=== PATIENT | female | born 1945 | race Caucasian/White ===

== ENCOUNTER 2018-10-16 06:15 | Inpatient (IN) | payer MEDICARE, BC ==
[2018-10-16] MEDS: Lactated Ringers 1,000 ML IV SCH ×2 (06:58→16:32)
[2018-10-16] MEDS ORDERED: Scopolamine 1.5 MG Transdermal Patch TRDERM PRN (07:01)
[2018-10-16] MEDS ORDERED: Clindamycin Phosphate in D5W 900 MG in Premix Bag 1 BAG IV SCH ×2 (07:15)
[2018-10-16] MEDS ORDERED: Lidocaine 2% 5 ML SDV ONE (07:18)
[2018-10-16] MEDS ORDERED: Propofol 200 MG/20 ML SDV ONE (07:18)
[2018-10-16] MEDS ORDERED: Midazolam 1 MG/ML 2 ML SDV ONE (07:19)
[2018-10-16] MEDS ORDERED: fentaNYL 100 MCG/2 ML SDV ONE (07:19)
--- NOTE | 2018-10-16 07:20 | PCM.PREANE ---
Preanesthetic Assessment - Anesthesia/Transfusion/Family Hx Anesthesia History: Prior Anesthesia Reaction Type of Anesthesia Reaction: Excessive Nausea/Vomiting Other Type of Anesthesia Reaction Comment: would like the scope patch placed before surgery Family History of Anesthesia Reaction: No Transfusion History: No Prior Transfusion(s) Intubation History: Unknown - Review of Systems General: No Symptoms Pulmonary: No Symptoms Cardiovascular: No Symptoms Gastrointestinal: No Symptoms Neurological: No Symptoms Other: Reports: None - Physical Assessment O2 Sat by Pulse Oximetry: 95 Respiratory Rate: 16 Vital Signs: Last Vital Signs Temp 36.3 C 10/16/18 06:45 Pulse 68 10/16/18 06:45 Resp 16 10/16/18 06:45 BP 137/76 10/16/18 06:45 Pulse Ox 95 10/16/18 06:45 Height: 5 ft 3 in Weight: 71.668 kg ASA Class: 2 Mental Status: Alert & Oriented x3 Airway Class: Mallampati = 2 Dentition: Reports: Normal Dentition, Albia(s) (few on the back side) Thyro-Mental Finger Breadths: 3 Mouth Opening Finger Breadths: 2 ROM/Head Extension: Limited/Partial Lungs: Clear to Auscultation, Normal Respiratory Effort Cardiovascular: Regular Rate, Regular Rhythm - Allergies Allergies/Adverse Reactions: Allergies Allergy/AdvReac Type Severity Reaction Status Date / Time ezetimibe [From Vytorin] Allergy Body Aches Verified 10/11/18 13:32 Penicillins Allergy Hives Verified 10/11/18 13:21 simvastatin [From Vytorin] Allergy Body Aches Verified 10/11/18 13:32 dust Allergy sinus Uncoded 10/11/18 13:32 problems & H\A molds Allergy sinus Uncoded 10/11/18 13:32 problems & H\A - Blood Blood Available: No - Anesthesia Plan Pre-Op Medication Ordered: None - Acknowledgements Anesthesia Type Planned: Spinal (general anesthesia back up plan) Pt an Appropriate Candidate for the Planned Anesthesia: Yes Alternatives and Risks of Anesthesia Discussed w Pt/Guardian: Yes Pt/Guardian Understands and Agrees with Anesthesia Plan: Yes PreAnesthesia Questionnaire HEENT History: Reports: Allergic Rhinitis, Other (See Below) Other HEENT History: wears glasses Cardiovascular History: Reports: High Cholesterol, Hypertension Respiratory History: Reports: None Gastrointestinal History: Reports: None Genitourinary History: Reports: Other (See Below) Other Genitourinary History: UTI's years ago 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: Musculoskeletal History: Reports: Osteoarthritis Neurological History: Reports: Other (See Below) Other Neuro History: sinus headaches in the past Psychiatric History: Reports: Anxiety, Depression Endocrine/Metabolic History: Reports: None Hematologic History: Reports: Blood Transfusion(s) Other Hematologic History: transfusion after hysterectomy Immunologic History: Reports: None Oncologic (Cancer) History: Reports: None Dermatologic History: Reports: None - Past Surgical History Head Surgeries/Procedures: Reports: None HEENT Surgical History: Reports: None Cardiovascular Surgical History: Reports: None Respiratory Surgical History: Reports: None GI Surgical History: Reports: None Female Surgical History: Reports: Breast Biopsy, Hysterectomy, Tubal Ligation Endocrine Surgical History: Reports: None Neurological Surgical History: Reports: None Musculoskeletal Surgical History: Reports: None Oncologic Surgical History: Reports: Biopsy of Breast Dermatological Surgical History: Reports: None - SUBSTANCE USE Smoking Status *Q: Never Smoker Recreational Drug Use History: No - HOME MEDS Home Medications: Home Meds Citalopram [Celexa] 20 mg PO DAILY 03/22/15 [History] Losartan [Cozaar] 50 mg PO DAILY 03/22/15 [History] Cholestyramine/Aspartame [Cholestyramine Light Powder] 4 gm PO ASDIRECTED [History] Flaxseed Oil 1,000 mg PO DAILY 10/11/18 [History] Lutein 20 mg PO DAILY 10/11/18 [History] Multivitamin [Multivitamins] 1 tab PO DAILY 10/11/18 [History] Nystatin [Nystatin Crm] 1 applic TOP ASDIRECTED PRN 10/11/18 [History] Porcupine-3/DHA & EPA/Ala/Vit D3 [Porcupine-3 Gummies] 1 tab.chew CHEW DAILY 10/11/18 [ History] - CURRENT (IN HOUSE) MEDS Current Meds: Current Medications Lactated Ringer's (Ringers, Lactated) 1,000 mls @ 100 mls/hr IV ASDIRECTED [facility] Last Admin: 10/16/18 06:58 Dose: 100 mls/hr Clindamycin Phosphate 900 mg/ (Premix) 50 mls @ 100 mls/hr IV ONETIME [facility] Scopolamine (Transderm-Scop) 1.5 mg TRDERM Q72H PRN PRN Reason: Nausea Last Admin: 10/16/18 07:17 Dose: 1.5 mg Discontinued Medications Tranexamic Acid (Cyklokapron) 2,000 mg IV ONETIME ONE Stop: 10/16/18 07:15
[2018-10-16] MEDS ORDERED: EPINEPHrine 1 MG/ML SDV ONE (08:35)
[2018-10-16] MEDS ORDERED: Sodium Chloride 0.9% 20 ML ONE (08:35)
[2018-10-16] MEDS ORDERED: ePHEDrine 50 MG/ML SDV ONE (08:35)
[2018-10-16] MEDS ORDERED: Phenylephrine/Normal Saline 100 MCG/ML 10 ML Syringe ONE (08:45)
[2018-10-16] MEDS ORDERED: fentaNYL 100 MCG/2 ML SDV IVPUSH PRN (08:52)
[2018-10-16] MEDS ORDERED: Naloxone 0.4 MG/ML Syringe IVPUSH PRN (08:52)
[2018-10-16] MEDS ORDERED: 50% Dextrose in Water 50 ML Syringe IVPUSH PRN (08:52)
[2018-10-16] MEDS ORDERED: EPINEPHrine 1:10,000 1 MG/10 ML Syringe IVPUSH PRN (08:52)
[2018-10-16] MEDS ORDERED: Albuterol 0.083% 2.5 MG/3 ML Neb Soln NEB PRN (08:52)
[2018-10-16] MEDS ORDERED: Atropine 0.1 MG/ML 10 ML Syringe IVPUSH PRN ×2 (08:52)
[2018-10-16] MEDS ORDERED: Docusate Sodium 100 MG Cap PO PRN (09:54)
[2018-10-16] MEDS ORDERED: Acetaminophen/HYDROcodone 325-5 MG Tab ONE (09:54)
[2018-10-16] MEDS ORDERED: Morphine 10 MG/ML Syringe IVPUSH PRN (09:54)
--- NOTE | 2018-10-16 09:59 | PCM.OPNOTE ---
- General Post-Op/Procedure Note Date of Surgery/Procedure: 10/16/18 Operative Procedure(s): right anterior total hip arthroplasty Findings: osteoarthritis Pre Op Diagnosis: right hip osteoarthritis Post-Op Diagnosis: same Anesthesia Technique: Moderate Sedation, Spinal Primary Surgeon: Florentino Milligan Mai Pathology: femoral head EBL in mLs: 300 Complications: none Condition: Good
[2018-10-16] MEDS ORDERED: Cholestyramine/Aspartame Powder 239.4 GM Jar PO SCH (10:30)
[2018-10-16] MEDS: HYDROmorphone 2 MG/ML Syringe IVPUSH PRN ×2 (12:46→15:03)
[2018-10-16] MEDS: Clindamycin Phosphate in D5W 900 MG in Premix Bag 1 BAG IV SCH ×4 (13:19→21:59)
[2018-10-16] MEDS: Ondansetron 4 MG/2 ML SDV IVPUSH PRN ×2 (16:30→22:38)
--- NOTE | 2018-10-16 17:20 | OR ---
SURGEON: Florentino Serra MD DATE OF PROCEDURE: 10/16/2018 PREOPERATIVE DIAGNOSIS: Right hip osteoarthritis. POSTOPERATIVE DIAGNOSIS: Right hip osteoarthritis. OPERATION PERFORMED: Right anterior total hip arthroplasty. ANESTHESIA: Spinal sedation. COMPLICATION: None. ESTIMATED BLOOD LOSS: 300 mL. SPECIMENS: Femoral head. IMPLANTS: Dante Continuum trabecular metal shell, cluster holes, 60 mm outer diameter; one 6.5 x 30 mm length bone screw, Vivacit-E neutral liner, 32 mm inner diameter; M/L Taper press-fit stem, extended offset, reduced neck length, size 10; Biolox ceramic femoral head 32 mm diameter,-3.5 neck length. INDICATIONS: The patient is a 73-year-old female with severe arthritis of the hip. She wished to undergo replacement. She understands the risks, benefits, and complications of the procedure to include, but not limited to infection, neurovascular injury, continued pain, DVT, PE, stroke, IA, , leg-length discrepancy, fracture, dislocation and deep infection, and she wished to proceed. DESCRIPTION OF PROCEDURE: The patient was seen in the preoperative area. The operative site was marked with the patient. She was transferred to the operating room, where spinal anesthetic was given. A Garcia catheter was placed. She was placed supine on the Maquet table and sedation was given. Legs were placed in the leg bars with narrow perineal post. Right hip was prepped and draped in the usual sterile fashion using alcohol followed by ChloraPrep. A formal time-out was taken to identify correct patient, procedure, and extremity. She received preoperative antibiotics with clindamycin and 2 g of TXA. There was Ioban covering. An 8 cm incision starting laterally at the ASIS and going obliquely down the femur was made. Dissection was carried down through subcutaneous tissues. Hemostasis was obtained. The fascia overlying the TFL lateral to lateral femoral cutaneous nerve was opened, and the interval between TFL and sartorius was opened. The vastus lateralis fascia of the anterior vessels was coagulated. The indirect head of the rectus was released, and deep David retractor was placed. Capsule was held and tagged with two sutures. Deep retractors were placed. There was severe synovitis. The neck was cut from saddle region 1 cm above the lesser trochanter, and the head was removed. There was noted be moderate arthritis with subchondral cystic changes. Labral remnants were removed. The inferior capsule was released preserving the iliopsoas tendon, and the pulvinar was removed. Head measured approximately 45 mm. It was sequentially reamed from 43 up to 49 mm going slightly superomedial. This was a great fit and fill. There was good bleeding cancellous bone. The wound was irrigated. After planing the bed to make sure it was level, under fluoroscopic control, a Continuum trabecular metal shell cluster holes were placed in 40 degrees of abduction and 10 degrees of anteversion. This was an excellent press-fit. One straight superior bone screw was placed. There was no uncovering of the cup anteriorly. The neutral liner was impacted. The femoral lift was placed. The leg was externally rotated, abducted, and extended. Superior capsule, obturator, internus, and piriformis were released. The central canal finder was utilized. It was sequentially broached from size 4 to size 10. It was trial reduced for standard offset. Printed overlay technique with fluoroscopy showed offset to be equal, but leg length to be slightly long, approximately 3 to 4 mm. The hip was then dislocated. Therefore, a size-10 extended offset reduced neck length was impacted. However, this sat about 2 to 3 mm prouder than the broach. It was trial reduced with a -3.5 neck length, which showed offset to be slightly increased and the leg lengths to be slightly increased by a couple of millimeter, and this was deemed acceptable. There was no Shuck, and the hip was stable through range of motion. Hip was then dislocated. The final head was impacted, a 32-mm diameter -3.5 neck length. The hip was then relocated. Wound was thoroughly irrigated. Two tag sutures were tied together. The fascia was closed with #1 Vicryl, fat layer with #1 Vicryl, subcutaneous tissues with 2-0 STRATAFIX, and skin with running 4-0 Monocryl. Dermabond tape and Aquacel dressing were placed. The patient was transferred to the recovery room in a stable condition. Sponge and needle counts were correct at the end of the case. There were no complications. She will weightbear as tolerated and aspirin for DVT prophylaxis. MIKAELA BURTON /[id number]
[2018-10-16] MEDS: Acetaminophen/HYDROcodone 325-7.5 MG Tab PO PRN (19:27)
[2018-10-16] MEDS: Aspirin 325 MG Tab.EC PO SCH (21:57)
[2018-10-17] MEDS: Lactated Ringers 1,000 ML IV SCH (02:40)
[2018-10-17] MEDS: Acetaminophen/HYDROcodone 325-7.5 MG Tab PO PRN ×2 (04:03→08:41)
[2018-10-17] MEDS: Clindamycin Phosphate in D5W 900 MG in Premix Bag 1 BAG IV SCH ×2 (05:31)
[2018-10-17] MEDS ORDERED: Sodium Chloride 0.9% 2.5 ML Syringe FLUSH PRN (06:59)
[2018-10-17] MEDS ORDERED: Sodium Chloride 0.9% 10 ML Syringe FLUSH PRN (06:59)
--- NOTE | 2018-10-17 07:01 | PCM.SN ---
- Free Text/Narrative Note: Subjective: Patient is doing well other than lots of nausea. She has not gotten up due to nausea. She has no chest pain or shortness of breath.. Her pain is well controlled. O: Afebrile, vital signs stable Right hip reveals a clean/dry/intact. There is no swelling proximally or distally. She has normal sensation and motor distally. There is a palpable pulse. Assessment/plan: Postoperative day #1 right anterior total hip arthroplasty - Full weightbearing with physical therapy and walker - Leave dressing on. No extreme external rotation or extension - Ecotrin for DVT prophylaxis - DC Garcia and IV fluids - Possible home today depending on how she does..
--- NOTE | 2018-10-17 08:13 | PCM48HPAN ---
Post Anesthesia Note - EVALUATION WITHIN 48HRS OF ANESTHETIC Vital Signs in Normal Range: Yes Patient Participated in Evaluation: Yes Respiratory Function Stable: Yes Airway Patent: Yes Cardiovascular Function Stable: Yes Hydration Status Stable: Yes Pain Control Satisfactory: Yes Nausea and Vomiting Control Satisfactory: Yes Mental Status Recovered: Yes Resp Rate: 18 - COMMENTS/OBSERVATIONS Free Text/Narrative:: Up in chair and states that nausea is better than yesterday and able to eat now. Also states that pain is doing better and that movement helps her.
[2018-10-17] MEDS ORDERED: Losartan 50 MG Tab PO SCH (09:00)
[2018-10-17] MEDS ORDERED: Citalopram 20 MG Tab PO SCH (09:00)
[2018-10-17] MEDS: Aspirin 325 MG Tab.EC PO SCH (09:24)
[2018-10-17 11:53] VITALS: BP 128/62
--- NOTE | 2018-10-17 15:31 | PCM.DCSUM1 ---
Discharge Summary - Hospital Course Brief History: Patient was admitted for elective total hip arthroplasty on the right Diagnosis: Stroke: No - Discharge Data Discharge Date: 10/17/18 Discharge Disposition: Home, Self-Care 01 Condition: Good - Patient Summary/Data Operative Procedure(s) Performed: right anterior total hip arthroplasty Consults: Consultations 10/16/18 09:54 PT Evaluation and Treatment [CONS] Routine Hospital Course: Patient was admitted and underwent uneventful total hip arthroplasty. Postoperatively she was admitted to the floor where her pain was controlled and her diet was advanced. She had nausea which resolved on postoperative day #1 she did well with therapy essentially discharged home on postoperative day #1. She'll take aspirin for DVT prophylaxis she'll not change her dressing and she will follow-up in 2 weeks. - Patient Instructions Diet: Usual Diet as Tolerated Activity: Apply Ice, As Tolerated, Full Weight Bearing Driving: Do Not Drive Showering/Bathing: May Shower Wound/Incision Care: Keep Operative Site/Wound Site Clean and Dry, Do NOT Change Dressing Notify Provider of: Fever, Drainage - Discharge Plan *PRESCRIPTION DRUG MONITORING PROGRAM REVIEWED*: No *COPY OF PRESCRIPTION DRUG MONITORING REPORT IN PATIENT SAMMY: No Home Medications: Home Meds Citalopram [Celexa] 20 mg PO DAILY 03/22/15 [History] Losartan [Cozaar] 50 mg PO DAILY 03/22/15 [History] Cholestyramine/Aspartame [Cholestyramine Light Powder] 4 gm PO ASDIRECTED [History] Flaxseed Oil 1,000 mg PO DAILY 10/11/18 [History] Lutein 20 mg PO DAILY 10/11/18 [History] Multivitamin [Multivitamins] 1 tab PO DAILY 10/11/18 [History] Nystatin [Nystatin Crm] 1 applic TOP ASDIRECTED PRN 10/11/18 [History] Arena-3/DHA & EPA/Ala/Vit D3 [Arena-3 Gummies] 1 tab.chew CHEW DAILY 10/11/18 [ History] - Discharge Summary/Plan Comment DC Time >30 min.: No - Patient Data Vitals - Most Recent: Last Vital Signs Temp 37.7 C 10/17/18 11:52 Pulse 69 10/17/18 11:52 Resp 16 10/17/18 11:52 BP 128/62 10/17/18 11:52 Pulse Ox 95 10/17/18 11:52 Weight - Most Recent: 71.668 kg I&O - Last 24 hours: Intake & Output 10/17/18 10/17/18 10/17/18 06:59 14:59 22:59 Intake Total 1871 Output Total 1330 Balance 541 Med Orders - Current: Current Medications Hydrocodone Bitart/Acetaminophen (Logan 325-7.5 Mg) 0 tab PO Q4H PRN PRN Reason: PAIN Last Admin: 10/17/18 08:41 Dose: 1 tab Aspirin (Ecotrin) 325 mg PO BID [facility] Last Admin: 10/17/18 09:24 Dose: 325 mg Cholestyramine Resin (Cholestyramine Light) 4 gm PO ASDIRECTED [facility] Citalopram Hydrobromide (Celexa) 20 mg PO DAILY [facility] Last Admin: 10/17/18 09:25 Dose: 20 mg Docusate Sodium (Colace) 100 mg PO BID PRN PRN Reason: Constipation Last Admin: 10/17/18 09:37 Dose: 100 mg Hydromorphone HCl (Dilaudid) 0.5 mg IVPUSH Q2H PRN PRN Reason: Pain Last Admin: 10/16/18 15:03 Dose: 0.5 mg Losartan Potassium (Cozaar) 50 mg PO DAILY [facility] Last Admin: 10/17/18 09:24 Dose: 50 mg Morphine Sulfate (Morphine) 1 - 5 mg IVPUSH Q2H PRN PRN Reason: Pain Ondansetron HCl (Zofran) 4 mg IVPUSH Q6H PRN PRN Reason: Nausea/Vomiting Last Admin: 10/16/18 22:38 Dose: 4 mg Scopolamine (Transderm-Scop) 1.5 mg TRDERM Q72H PRN PRN Reason: Nausea Last Admin: 10/16/18 07:17 Dose: 1.5 mg Sodium Chloride (Saline Flush) 10 ml FLUSH ASDIRECTED PRN PRN Reason: Keep Vein Open Sodium Chloride (Saline Flush) 2.5 ml FLUSH ASDIRECTED PRN PRN Reason: Keep Vein Open Discontinued Medications Hydrocodone Bitart/Acetaminophen (Logan 325-5 Mg) 1 - 2 tab .ROUTE .STK-MED ONE Stop: 10/16/18 09:55 Ephedrine Sulfate (Ephedrine Sulfate) Confirm Administered Dose 50 mg .ROUTE .STK-MED ONE Stop: 10/16/18 08:36 Epinephrine HCl (Adrenalin) Confirm Administered Dose 1 mg .ROUTE .STK-MED ONE Stop: 10/16/18 08:36 Fentanyl (Sublimaze) Confirm Administered Dose 100 mcg .ROUTE .STK-MED ONE Stop: 10/16/18 07:20 Fentanyl (Sublimaze) 50 mcg IVPUSH Q5M PRN PRN Reason: Pain Lactated Ringer's (Ringers, Lactated) 1,000 mls @ 100 mls/hr IV ASDIRECTED [facility] Last Admin: 10/17/18 02:40 Dose: 100 mls/hr Clindamycin Phosphate 900 mg/ (Premix) 50 mls @ 100 mls/hr IV ONETIME [facility] Last Admin: 10/16/18 07:23 Dose: 100 mls/hr Acetaminophen (Ofirmev) Confirm Administered Dose 100 mls @ as directed IV .STK- MED ONE Stop: 10/16/18 08:18 Sodium Chloride (Normal Saline) Confirm Administered Dose 20 mls @ as directed .ROUTE .STK-MED ONE Stop: 10/16/18 08:36 Clindamycin Phosphate 900 mg/ (Premix) 50 mls @ 100 mls/hr IV Q8H [facility] Stop: 10/17/18 06:29 Last Admin: 10/17/18 05:31 Dose: 100 mls/hr Lidocaine (Xylocaine-Mpf 2%) Confirm Administered Dose 5 ml .ROUTE .STK-MED ONE Stop: 10/16/18 07:19 Midazolam HCl (Versed 1 Mg/Ml) Confirm Administered Dose 2 mg .ROUTE .STK-MED ONE Stop: 10/16/18 07:20 Phenylephrine HCl (Phenylephrine In Ns 100 Mcg/Ml) Confirm Administered Dose 1 mg .ROUTE .STK-MED ONE Stop: 10/16/18 08:46 Propofol (Diprivan 20 Ml) Confirm Administered Dose 400 mg .ROUTE .STK-MED ONE Stop: 10/16/18 07:19 Tranexamic Acid (Cyklokapron) 2,000 mg IV ONETIME ONE Stop: 10/16/18 07:15 Last Admin: 10/16/18 10:32 Dose: Not Given Tranexamic Acid (Cyklokapron) Confirm Administered Dose 2,000 mg .ROUTE .STK- MED ONE Stop: 10/16/18 08:18
--- NOTE | 2018-10-18 10:18 | CR ---
EXAMINATION: Right hip HISTORY: Arthroplasty COMPARISON: 04/26/2018 TECHNIQUE: 3 fluoroscopic images provided FINDINGS/IMPRESSION: Operative control films demonstrate placement of right total hip hardware in good position and alignment.
== END 2018-10-17 16:25 | disposition home or self-care (01) | DRG 470 ==
LOC: MW.MS 06:15
PROVIDERS: ADMIT Orthopaedic Surgery; ATTEND Orthopaedic Surgery
PROC: 0SR901Z Replacement of Right Hip Joint with Metal Synthetic Substitute, Open Approach (ICD-10-PCS; principal; 2018-10-16)
DX: M16.11 Unilateral primary osteoarthritis, right hip (principal); E78.00 Pure hypercholesterolemia, unspecified; I10 Essential (primary) hypertension; J30.9 Allergic rhinitis, unspecified; F32.9 Major depressive disorder, single episode, unspecified; R11.0 Nausea; F41.9 Anxiety disorder, unspecified; Z90.89 Acquired absence of other organs; Z79.899 Other long term (current) drug therapy; Z88.0 Allergy status to penicillin; Z91.048 Other nonmedicinal substance allergy status
CPT/HCPCS: 97110-GP; 97161-GP; 97530-GP; A4217; A9270-GY; C1713; C1776; J0131; J0171; J1170; J2001; J2250; J2370; J2405; J2704; J3010; J3490; J7120